=== PATIENT | female | born 1955 | race Hispanic/Latino ===

== ENCOUNTER 2017-03-18 13:43 | Outpatient (CLI) | payer OTHER ==
[2017-03-18 14:34] LABS: Bilirubin Small (Negative); Blood, Urine Negative (Negative); Glucose, Urine (Dipstick) Negative (Negative); Ketone, Urine Negative (Negative); Nitrite Negative (Negative); Protein, Urine (Dipstick) Negative (Neg-Trace); Urobilinogen 0.2 mg/dL (0.2-1.0)
[2017-03-18 14:35] LABS: Hematocrit 43.5 % (36.0-47.0); Mean Platelet Volume 6.9 fL (7.4-10.4); Red Blood Cell (RBC) Count 4.39 mill/uL (4.20-5.40); White Blood Cell (WBC) Count 9.1 thou/uL (4.8-10.8)
[2017-03-18 14:36] LABS: Bacteria/HPF 2+ HPF (None Seen)
[2017-03-18 14:53] LABS: Hyaline Casts/LPF 0-3 HYALINE CAST LPF (0-3 Hyaline); Renal Epithelial None Seen HPF (0-3); Transitional Epithelial NONE SEEN HPF (0-3); WBC/HPF 0-3 HPF (0-3)
[2017-03-18 14:54] LABS: Anion Gap 15 mmol/L (10-20); BUN (Urea Nitrogen) 13 mg/dL (9.8-20.1); Calc. Creatinine Clearance 0 mL/min (70-130); Calcium 9.3 mg/dL (7.8-10.44); Carbon Dioxide 25 mmol/L (23-31); Chloride 106 mmol/L (98-107); Estimated GFR-MDRD 75; RBC/HPF 0-3 HPF (0-3)
--- NOTE | 2017-03-19 06:15 | EKG ---
Test Reason : PREOP Blood Pressure : / mmHG Vent. Rate : 058 BPM Atrial Rate : 058 BPM P-R Int : 258 ms QRS Dur : 080 ms QT Int : 426 ms P-R-T Axes : 068 111 087 degrees QTc Int : 418 ms Sinus bradycardia with 1st degree A-V block Right axis deviation Possible Right ventricular hypertrophy Nonspecific T wave abnormality V1-V6 can not R/O ischemia Abnormal ECG No previous ECGs available Confirmed by INOCENTE ALFREDO ([id number]) on 03/19/2017 6:14:26 AM Referred By: DAVIDSON Confirmed By:INOCENTE ALFREDO
== END 2017-03-18 13:44 | disposition home or self-care (01) ==
LOC: LABBT 13:43
PROVIDERS: ATTEND Orthopaedic Surgery
DX: Z01.818 Encounter for other preprocedural examination (principal); M75.101 Unspecified rotator cuff tear or rupture of right shoulder, not specified as traumatic
CPT/HCPCS: 80048; 81001; 85027; 93005; 93010

== ENCOUNTER 2017-03-19 05:42 | Day surgery (SDC) | payer OTHER ==
[2017-03-18 13:59] VITALS: BMI 27.3
[2017-03-19] MEDS ORDERED: Midazolam HCl 2 mg/2 ml Vial ONE (06:16)
[2017-03-19] MEDS ORDERED: Fentanyl 100 MCG/2 ML VIAL ONE (06:16)
[2017-03-19] MEDS ORDERED: Ropivacaine 0.2% HCl/PF 20 ML ONE (06:16)
[2017-03-19] MEDS ORDERED: Bupivacaine HCl 0.5%/Epinephrine 1:200,000/PF 30 ml Vial ONE (06:56)
[2017-03-19] MEDS ORDERED: Ropivacaine 0.2% 550 ML 550 ML NERVE BLCK SCH (07:16)
[2017-03-19] MEDS ORDERED: Promethazine HCl 25 MG/ML VIAL IM PRN (07:16)
[2017-03-19] MEDS ORDERED: traMADol HCl 50 MG TAB PO PRN ×2 (07:16)
[2017-03-19] MEDS ORDERED: Ketorolac Tromethamine 30 MG/ML VIAL IVP PRN (07:16)
[2017-03-19] MEDS ORDERED: Zolpidem Tartrate 5 MG TAB PO PRN (07:16)
[2017-03-19] MEDS ORDERED: Ondansetron HCl/PF 4 MG/2 ML Vial IVP PRN (07:16)
[2017-03-19] MEDS ORDERED: Fentanyl 100 MCG/2 ML VIAL IV PRN (07:19)
[2017-03-19] MEDS ORDERED: HYDROcodone/Acetaminophen 7.5/325 mg Tablet PO PRN ×2 (07:21)
[2017-03-19] MEDS ORDERED: Propofol 200 MG/20 ML VIAL ONE (07:36)
[2017-03-19] MEDS ORDERED: Ketorolac Tromethamine 30 MG/ML VIAL ONE (07:36)
[2017-03-19] MEDS ORDERED: PHENYLEPHRINE-NS 100 MCG/ML 10 ML SYRINGE ONE (07:36)
[2017-03-19] MEDS ORDERED: Dexamethasone 20 MG/5 ML VIAL ONE (07:36)
[2017-03-19] MEDS ORDERED: ePHEDrine/0.9% NaCl/PF SYRINGE 50 mg/10 ml ONE (07:36)
[2017-03-19] MEDS ORDERED: Ondansetron HCl/PF 4 MG/2 ML Vial ONE (07:36)
--- NOTE | 2017-03-19 22:51 | OP ---
DATE OF PROCEDURE: 03/19/2017 PREOPERATIVE DIAGNOSES: Left full thickness supraspinatus tear with degenerative labral changes, acromioclavicular joint arthritis. POSTOPERATIVE DIAGNOSES: 1. Left full thickness rotator cuff tear, supraspinatus. 2. Partial subscapularis tear. 3. Less than 10% biceps tendon fraying. 4. Degenerative labral tear. 5. Left acromioclavicular joint arthritis. PROCEDURES PERFORMED: 1. Left rotator cuff repair. 2. Limited debridement: Subscapularis, biceps, degenerative labrum. STAFF: Kaleb Hemphill MD CAT SCANNER OPERATOR: None. ANESTHESIA: Saha. The patient received general endotracheal intubation with interscalene block, she also received 15 mL of Marcaine 0.25% subacromially. IMPLANTS: 5.5 corkscrew and a 4.7 SwiveLock. ANTIBIOTICS: Two grams, 500 crystalloid. COMPLICATIONS: None. HISTORY OF PRESENT ILLNESS: Ms. Velásquez is a 62-year-old female who presented to me with left shoulder pain. The patient had pain since about September. MRI evidence of full thickness cuff tear. She had decreased function. She had previous injection with some relief. I discussed the risks and benefits of a left rotator cuff repair with evaluation of biceps and decompress as needed. She understood the risks and benefits of procedure and elected to proceed. DESCRIPTION OF PROCEDURE: After timeout was performed, the patient's left upper extremity as the operative site based on sight, consents, and markings. After completion of timeout, the patient's posterior working portal and anterior working portal were placed, some frayed edges inferiorly and some degenerative changes around the labrum. Biceps had about 10% frayed edge, but was otherwise completely intact, some mild erythema left it in place. They had a leading edge of the subscapularis that was partially torn. I debrided that edge as well as I debrided some of the degenerative labrum and synovium, hanging in the joint. Debrided the bursa, debrided the footprint of the cuff, I then move subacromially, placed the lateral working portal to visualize the cuff tear, debrided down to bone, created some bleeding bone as well as a footprint for my anchor, I placed a 5.5 corkscrew, passed 4 sutures in horizontal mattress fashion from anterior to posterior, tied posterior to anterior in a lateral row to help to compress the cuff down to the footprint. Being happy with my repair, I then washed, closed with 2-0 nylon. The patient will remain in an abduction sling. I will see her back in clinic in 2 weeks. She will perform elbow, wrist, and hand motion. No active shoulder motion. The outlook is guarded. EVANS
== END 2017-03-19 11:20 | disposition home or self-care (01) ==
LOC: SDC 05:42
PROVIDERS: ATTEND Orthopaedic Surgery
PROC: 0LB10ZZ Excision of Right Shoulder Tendon, Open Approach (ICD-10-PCS; principal; 2017-03-19)
DX: M75.122 Complete rotator cuff tear or rupture of left shoulder, not specified as traumatic (principal); S46.011A Strain of muscle(s) and tendon(s) of the rotator cuff of right shoulder, initial encounter
CPT/HCPCS: A4306; C1713; J0670; J1100; J1885; J2250; J2405; J2704; J2795; J3010